=== PATIENT | female | born 1955 | race Caucasian/White ===

== ENCOUNTER 2022-08-01 13:46 | Emergency (ER) | payer MEDICARE ==
[~2022-08-01] VITALS: Ht 165.1 cm; Wt 100.7 kg
[2022-08-01 13:48] VITALS: BP 137/72
[2022-08-01] MEDS ORDERED: MORPHINE 4 MG SYG IM ONE (14:30)
[2022-08-01] MEDS ORDERED: ONDANSETRON ODT 4MG TAB SL ONE (14:30)
[2022-08-01] MEDS ORDERED: IBUP-2071 PO (15:35)
[2022-08-01] MEDS ORDERED: HYDR-4060 PO (15:35)
== END 2022-08-01 16:42 | disposition home or self-care (01) ==
LOC: EDH 13:46
DX: S70.01XA Contusion of right hip, initial encounter (principal); M54.41 Lumbago with sciatica, right side; E78.00 Pure hypercholesterolemia, unspecified; I10 Essential (primary) hypertension; E11.9 Type 2 diabetes mellitus without complications; Z90.710 Acquired absence of both cervix and uterus; Z90.49 Acquired absence of other specified parts of digestive tract; Z98.890 Other specified postprocedural states; X58.XXXA Exposure to other specified factors, initial encounter; Y93.01 Activity, walking, marching and hiking; Y92.89 Other specified places as the place of occurrence of the external cause; Y99.8 Other external cause status
CPT/HCPCS: 99284; 73502; 96372; J2270